=== PATIENT | male | born 1975 ===

== ENCOUNTER 2020-12-26 06:08 | Day surgery (SDC) | payer OTHER ==
[2020-12-26] MEDS ORDERED: NEURONTIN600 M1 PO (13:30)
[2020-12-26] MEDS ORDERED: PERCOCET 5-3251 EACH PO (13:30)
[2020-12-26] MEDS ORDERED: POLY119PG PO (13:30)
== END 2020-12-26 16:50 | disposition home or self-care (01) ==
LOC: CIR.AMB 06:08 → EDBD 07:30 → CIR.AMB 07:30
PROVIDERS: ATTEND Surgery
DX: K40.90 Unilateral inguinal hernia, without obstruction or gangrene, not specified as recurrent (principal)